=== PATIENT | male | born 1980 | race African-American/Black ===

== ENCOUNTER 2024-10-09 13:19 | Emergency (ER) | payer OTHER ==
[~2024-10-09] VITALS: Ht 177.8 cm; Wt 100.3 kg
--- NOTE | 2024-10-09 13:27 | ECG ---
[facility] Test Date: 2024-10-09 Test Time: 13:26:13 Pat Name: OSIRIS COBIAN Department: ER Room: Gender: M [employer] Supervisor: SARAH : 1980 Requested By: JOHNNIE MCFADDEN Order Number: [id number] Reading MD: Measurements Intervals [place] Rate: 74 P: 66 WY: 130 QRS: 69 QRSD: 104 T: 37 QT: 375 QTc: 416 Interpretive Statements Sinus rhythm RSR' in V1 or V2, right VCD or RVH Please click the below link to view image of tracing.
--- NOTE | 2024-10-09 15:23 | DVH ---
CHEST RADIOGRAPH Indication: Shortness of breath Technique: Single frontal view of the chest was obtained Comparison: None FINDINGS: Lines and Tubes: None Lungs: No focal consolidation. Pleura: No effusion. No pneumothorax. Cardiomediastinal contours: Unremarkable Bones: No acute osseous abnormality. IMPRESSION: 1. No acute cardiopulmonary disease.
--- NOTE | 2024-10-09 16:08 | ED.PDOC ---
History of Present Illness HPI Comments 44-year-old male presents with a chief complaint of cough, pleuritic chest pain, and fever x 2 days. Patient was afebrile upon arrival at 99.7F orally. Patient reports that he has been feeling these flu-like symptoms for the past x 2 days. Patient denies any nausea, vomiting, or diarrhea. Patient also denies any abdominal pain. No other symptoms or modifying factors present at this time. Chief Complaint: Flu like Time Seen by MD: 16:05 Primary Care Provider: out of area Reviewed Notes: Nurses Notes, Medications, Allergies Allergies: Coded Allergies: NO KNOWN ALLERGIES (Unverified , 10/09/24) Information Source: Patient Mode of Arrival: Ambulatory Severity: Moderate Timing: Days Duration: Since onset Prehospital treatment: None Past Medical History PAST MEDICAL HISTORY: Denies Surgical History: Denies all surgeries Family History Family History: Reviewed,noncontributory to illness Social History Smoker: Non-Smoker Alcohol: Denies ETOH Use Drugs: Denies Drug Use Lives In: Home Constitutional: reports: fever; denies: chills, diaphoresis, fatigue, malaise, sweats, weakness, others EENTM: denies: blurred vision, double vision, ear bleeding, ear discharge, ear drainage, ear pain, ear ringing, eye pain, eye redness, hearing loss, mouth pain, mouth swelling, nasal discharge, nose bleeding, nose congestion, nose pain, photophobia, tearing, throat pain, throat swelling, voice changes, others Respiratory: reports: cough; denies: hemoptysis, orthopnea, SOB at rest, shortness of breath, SOB with excertion, stridor, wheezing, others Cardiovascular: reports: chest pain (PLEURITIC); denies: dizzy spells, diaphoresis, Dyspnea on exertion, edema, irregular heart beat, left arm pain, lightheadedness, palpitations, PND, syncope, others Gastrointestinal: denies: abdomen distended, abdominal pain, blood streaked bowels, constipated, diarrhea, dysphagia, difficulty swallowing, hematemesis, melena, nausea, poor appetite, poor fluid intake, rectal bleeding, rectal pain, vomiting, others Genitourinary: denies: burning, dysuria, flank pain, frequency, hematuria, incontinence, penile discharge, penile sore, pain, testicle pain, testicle swelling, urgency, others Neurological: denies: dizziness, fainting, headache, left sided numbness, left sided weakness, numbness, paresthesia, pre-existing deficit, right sided numbness, right sided weakness, seizure, speech problems, tingling, tremors, weakness, others Musculoskeletal: denies: back pain, gout, joint pain, joint swelling, muscle pain, muscle stiffness, neck pain, others Integumetry: denies: bruises, change in color, change in hair/nails, dryness, laceration, lesions, lumps, rash, wounds, others Allergic/Immunocompromised: denies: Difficulty Healing, Frequent Infections, Hives, Itching, others Hematologic/Lymphatic: denies: anemia, blood clots, easy bleeding, easy bruising, swollen glands, others Endocrine: denies: excessive hunger, excessive sweating, excessive thirst, excessive urination, flushing, intolerance to cold, intolerance to heat, unexplained weight gain, unexplained weight loss, others Psychiatric: denies: anxiety, bipolar disorder, depression, hopeless, panic disorder, schizophrenia, sleepless, suicidal, others All Other Systems: Reviewed and Negative Physical Exam General Appearance: Moderate Distress ([id number] distress due to chief complaint concerns.), Normal HEENT: Normal ENT Inspection, Pharynx Normal, TMs Normal Neck: Full Range of Motion, Non-Tender, Normal, Normal Inspection Respiratory: Chest Non-Tender, Lungs Clear, No Accessory Muscle Use, No Respiratory Distress, Normal Breath Sounds, Other (Auscultation bilateral lung trivedi was unremarkable.) Cardiovascular: No Edema, No JVD, No Murmur, No Gallop, Normal Peripheral Pulses, Regular Rate/Rhythm Breast Exam: Deferred Gastrointestinal: No Organomegaly, Non Tender, No Pulsatile Mass, Normal Bowel Sounds, Soft Genitalia: Deferred Pelvic: Deferred Rectal: Deferred Extremities: No calf tenderness, Normal capillary refill, Normal inspection, Normal range of motion, Non-tender, No pedal edema Musculoskeletal : Apperance: Normal Neurologic: Alert, No Motor Deficits, Normal Affect, Normal Mood, No Sensory Deficits Cerebellar Function: Normal Reflexes: Normal Skin: Dry, Normal Color, Warm Lymphatic: No Adenopathy Was a procedure done? Was a procedure done?: No Differential Dx Considerations may include: Influenza a/B, COVID-19, viral upper respiratory illness, pneumonia, bronchitis X-Ray, Labs, Meds, VS Vital Signs Date Time Temp Pulse Resp B/P (MAP) Pulse Ox O2 Delivery O2 Flow Rate FiO2 10/09/24 18:00 73 16 99 Room Air* 0 21 10/09/24 18:00 99.0 73 16 149/69 (95) 99 99.0 10/09/24 13:26 74 10/09/24 13:26 98.7 85 20 121/77 (92) 97 Lab Test 10/09/24 18:39 Range/Units Influenza Type A Antigen Negative Negative Influenza Type B Antigen Negative Negative SARS-CoV-2 Antigen (Rapid) Negative NEGATIVE X-Ray, Labs, Meds, VS Comment All studies performed the ED were evaluated by me personally. Imaging studies were unremarkable for any acute cardiopulmonary disease. No consolidation noted. Swabs were unremarkable for any influenza or COVID. Patient appears to be suffering from a viral upper respiratory illness. Advise utilizing medication as needed as well as good hydration and healthy nutrition throughout illness event. Time of 1ST Reevaluation: 19:09 Reevaluation 1ST: Unchanged Consultation: PCP Patient Education/Counseling: Diagnosis, Treatment, Prognosis Family Education/Counseling: Diagnosis, Treatment, Prognosis Departure 1 Departure Time of Disposition: 19:09 Impression: Primary Impression: Viral upper respiratory illness Disposition: HOME / SELF CARE / HOMELESS Condition: Stable Additional Instructions: Advise utilizing medication as needed for symptomatic relief as well as good hydration and healthy nutrition throughout illness event. e-Prescriptions Acetaminophen (Acetaminophen) 500 Mg Tab 500 MG PO Q4HP PRN, #30 TAB Prov: MATHEUS WINKLER PAC 10/09/24 Ibuprofen Micronized (Ibuprofen) 800 Mg Tab 800 MG PO Q8HP PRN, #20 TAB Prov: MATHEUS WINKLER PAC 10/09/24 Benzonatate (Benzonatate) 100 Mg Cap 1 CAP PO Q6HP PRN, #20 CAP Prov: MATHEUS WINKLER PAC 10/09/24 Discharged With: Self, Friend Critical Care Note Critical Care Time?: No Stability Stability form required: No I personally scribed for MATHEUS WINKLER PAC ([email or web address]) on 10/09/24 at 16:08. Electronically submitted by Mychal Gonzalez ([email or web address]). MATHEUS WINKLER PAC Oct 09, 2024 16:08
[2024-10-09 18:00] VITALS: PULSE 73; RESP 16; TEMP 99; O2SAT 99
[2024-10-09 19:02] LABS: COVID19 ANTIGEN SOFIA FIA NEGATIVE (NEGATIVE); Rapid Influenza A Negative (Negative); Rapid Influenza B Negative (Negative)
[2024-10-09] MEDS ORDERED: ACET500T58 PO (19:25)
[2024-10-09] MEDS ORDERED: BENZ100C97 PO (19:25)
[2024-10-09] MEDS ORDERED: IBUP-1455 PO (19:25)
[2024-10-09 19:45] VITALS: BP 120/81; PULSE 91; RESP 16; O2SAT 100
== END 2024-10-09 19:47 | disposition home or self-care (01) ==
LOC: ER 13:19
DX: J06.9 Acute upper respiratory infection, unspecified (principal); B97.89 Other viral agents as the cause of diseases classified elsewhere; Z20.822 Contact with and (suspected) exposure to COVID-19
CPT/HCPCS: 36415; 71045; 87426; 87804; 93005